=== PATIENT | female | born 1955 ===

== ENCOUNTER → 2016-12-19 | Outpatient (CLI) | payer OTHER ==
[2016-12-19 11:50] LABS: Vitamin B12 >1000 pg/mL (239-931)
== END | disposition home or self-care (01) ==
LOC: LABWHC1 09:44
PROVIDERS: ATTEND Internal Medicine Endocrinology, Diabetes & Metabolism
DX: E04.2 Nontoxic multinodular goiter (principal); E03.8 Other specified hypothyroidism; E53.8 Deficiency of other specified B group vitamins
CPT/HCPCS: 36415; 82607; 84443

== ENCOUNTER 2021-11-09 12:41 | Emergency (ER) | payer BC, OTHER ==
[2021-11-09 13:33] VITALS: TEMP 98.2
[2021-11-09] MEDS ORDERED: SODIUM CHLORIDE 0.9% 1,000 ML IV STA (13:49)
[2021-11-09 14:17] LABS: Basophils # (A) 0.1 k/uL (0-0.2); Basophils % (A) 1 %; Eosinophils # (A) 0.1 k/uL (0-0.7); Eosinophils % (A) 2 %; HCT 39.6 % (34.0-46.0); HGB 13.5 gm/dL (11.4-16.0); Lymphocytes # (A) 2.3 k/uL (1.0-4.8); Lymphocytes % (A) 32 %; MCH 29.5 pg (25.0-35.0); MCHC 34.2 g/dL (31.0-37.0); MCV 86.4 fL (80.0-100.0); Mean Platelet Volume 7.1; Monocytes # (A) 0.3 k/uL (0-1.0); Monocytes % (A) 5 %; Neutrophils # (A) 4.1 k/uL (1.3-7.7); Neutrophils % (A) 59 %; Platelet Count 357 k/uL (150-450); RBC 4.58 m/uL (3.80-5.40); RDW 12.1 % (11.5-15.5)
[2021-11-09] MEDS ORDERED: ACETAMINOPHEN TAB 500 MG TAB PO STA (14:22)
--- NOTE | 2021-11-09 14:25 | ED ---
General Adult HPI - General Source: patient, RN notes reviewed, old records reviewed Mode of arrival: ambulatory Limitations: no limitations <Richar Alcocer - Last Filed: 11/09/21 14:41> <Ronald Pope - Last Filed: 11/09/21 16:17> - General Chief complaint: Dizziness Stated complaint: covid+, High BP Time Seen by Provider: 11/09/21 13:38 - History of Present Illness Initial comments: 65-year-old female presenting for evaluation of coronavirus and elevated blood pressure. Patient is accompanied by her daughter who is able to give a detailed history. The patient himself does not speak much Uz[place]. She had developed symptoms over the past 7 days. Patient had been vaccinated with booster. She had developed headache she has predominately occipital and some dizziness. She denies chest pain or dyspnea. No abdominal pain. No focal weakness or numbness but she has some tingling sensation in her right arm predominantly. She also had an elevated blood pressure which she does not have history of. (Richar Alcocer) - Related Data Home Medications Medication Instructions Recorded Confirmed Aspirin EC [Ecotrin Low Dose] 81 mg PO DAILY 11/09/21 11/09/21 Calcium Carbonate [Calcium] 600 mg PO DAILY 11/09/21 11/09/21 Cholecalciferol [Vitamin D3 (25 25 mcg PO DAILY 11/09/21 11/09/21 Mcg = 1000 Iu)] Thyroid, Pork [[place] Thyroid] 30 mg PO DAILY 11/09/21 11/09/21 Thyroid,Pork [[place] Thyroid] 15 mg PO DAILY 11/09/21 11/09/21 Zinc 50 mg PO DAILY 11/09/21 11/09/21 Allergies Allergy/AdvReac Type Severity Reaction Status Date / Time No Known Allergies Allergy Verified 11/09/21 15:51 Review of Systems ROS Other: All systems not noted in ROS Statement are negative. <Richar Alcocer - Last Filed: 11/09/21 14:41> ROS Other: All systems not noted in ROS Statement are negative. <Ronald Pope - Last Filed: 11/09/21 16:17> ROS Statement: Those systems with pertinent positive or pertinent negative responses have been documented in the HPI. Past Medical History Past Medical History: Hypertension, Thyroid Disorder History of Any Multi-Drug Resistant Organisms: None Reported Past Surgical History: No Surgical Hx Reported Past Psychological History: No Psychological Hx Reported Smoking Status: Never smoker Past Alcohol Use History: None Reported Past Drug Use History: None Reported <Richar Alcocer - Last Filed: 11/09/21 14:41> General Exam Limitations: no limitations General appearance: alert, in no apparent distress Head exam: Present: atraumatic, normocephalic Eye exam: Present: normal appearance, PERRL ENT exam: Present: normal exam Neck exam: Present: normal inspection. Absent: tenderness, meningismus Respiratory exam: Present: normal lung sounds bilaterally. Absent: respiratory distress, wheezes Cardiovascular Exam: Present: regular rate, normal rhythm GI/Abdominal exam: Present: soft. Absent: distended, tenderness Extremities exam: Present: normal inspection, normal capillary refill Neurological exam: Present: alert, oriented X3, CN II-XII intact, other (NIH is 0, normal teacher hearing impaired strength, no ataxia, 5 out of 5 strength in all extremities.). Absent: motor sensory deficit Psychiatric exam: Present: normal affect, normal mood Skin exam: Present: warm, dry, intact. Absent: cyanosis, diaphoretic <Richar Alcocer - Last Filed: 11/09/21 14:41> Course Vital Signs 11/09/21 11/09/21 13:22 14:55 Temperature 98.2 F Pulse Rate 67 72 Respiratory 18 16 Rate Blood Pressure 154/82 158/62 O2 Sat by Pulse 98 97 Oximetry EKG Findings - EKG Comments: EKG Findings:: EKG: Normal sinus rhythm, rate of 76, LA interval 172, QRS duration 82, QTC [address] segment elevation. <Richar Alcocer - Last Filed: 11/09/21 14:41> Medical Decision Making - Lab Data Result diagrams: 11/09/21 14:06 11/09/21 14:06 <Richar Alcocer - Last Filed: 11/09/21 14:41> - Lab Data Result diagrams: 11/09/21 14:06 11/09/21 14:06 <Ronald Pope - Last Filed: 11/09/21 16:17> - Medical Decision Making 65-year-old female presenting with coronavirus. Patient does have a headache. She is otherwise well-appearing. Blood pressure is mildly elevated 150 systolic. She has a nonfocal neurologic exam. She had some paresthesias in the right arm but has no weakness, no ataxia NIH of 0. She had a heart sounds acute occipital and generalized headache. This began several hours prior to arrival. Head CT is negative for intracranial hemorrhage or mass effect she has normal CBC, normal CMP. I did have a lengthy discussion regarding monoclonal antibodies with the patient's daughter, she does meet based on age. These will be transfused in the emergency department. She will continue to monitor blood pressure at home and follow with the primary care. (Richar Alcocer) Patient was reevaluated at the bedside at 3:35 PM. Patient presents with family member, Mary who serves as the reconstructive surgeon. Patient's primary language is [place]. Patient allegedly had several hours of paresthesias to the proximal right arm overlying the triceps area. She states that has resolved. She does have persistent what she describes as pins and needle sensations to the plantar surface of the right foot. She states that he gets to the distal aspect to the plantar surface of the right foot, she has great dorsalis pedis and posterior tibialis pulses to that area, toes are warm. She has sensation to touch to the specified area. Patient ambulatory with no issues. Patient's presentation does not localize to a [employer] area making CVA unlikely. She does not have any deficits. She denies any gross numbness. No signs of extremity ischemia. Patient's symptoms likely secondary to neuropathy. She denies any headache at the bedside. Patient's clinical presentation has no high-risk features for acute [employer] or limb threatening process. Patient sure with monoclonal antibodies. Patient was observed in emergency Department 1 hour after infusion with no complications. Patient stable for discharge. (Ronald Pope) - Lab Data Lab Results 11/09/21 11/09/21 11/09/21 Range/Units 14:06 14:06 14:06 WBC 7.0 (3.8-10.6) k/uL RBC 4.58 (3.80-5.40) m/uL Hgb 13.5 (11.4-16.0) gm/dL Hct 39.6 (34.0-46.0) % MCV 86.4 (80.0-100.0) fL MCH 29.5 (25.0-35.0) pg MCHC 34.2 (31.0-37.0) g/dL RDW 12.1 (11.5-15.5) % Plt Count 357 (150-450) k/uL MPV 7.1 Neutrophils % 59 % Lymphocytes % 32 % Monocytes % 5 % Eosinophils % 2 % Basophils % 1 % Neutrophils # 4.1 (1.3-7.7) k/uL Lymphocytes # 2.3 (1.0-4.8) k/uL Monocytes # 0.3 (0-1.0) k/uL Eosinophils # 0.1 (0-0.7) k/uL Basophils # 0.1 (0-0.2) k/uL PT 10.1 (9.0-12.0) sec INR 0.9 (<1.2) Sodium 133 L (137-145) mmol/L Potassium 4.4 (3.5-5.1) mmol/L Chloride 102 (98-107) mmol/L Carbon Dioxide 23 (22-30) mmol/L Anion Gap 8 mmol/L BUN 16 (7-17) mg/dL Creatinine 0.65 (0.52-1.04) mg/dL Est GFR (CKD-EPI)AfAm >90 (>60 ml/min/1.73 sqM) Est GFR (CKD-EPI)NonAf >90 (>60 ml/min/1.73 sqM) Glucose 107 H (74-99) mg/dL Calcium 9.5 (8.4-10.2) mg/dL Magnesium 2.1 (1.6-2.3) mg/dL Total Bilirubin 0.5 (0.2-1.3) mg/dL AST 22 (14-36) U/L ALT 16 (4-34) U/L Alkaline Phosphatase 71 (38-126) U/L Total Protein 7.6 (6.3-8.2) g/dL Albumin 4.3 (3.5-5.0) g/dL Urine Color Urine Appearance (Clear) Urine pH (5.0-8.0) Ur Specific [place] (1.001-1.035) Urine Protein (Negative) Urine Glucose (UA) (Negative) Urine Ketones (Negative) Urine Blood (Negative) Urine Nitrite (Negative) Urine Bilirubin (Negative) Urine Urobilinogen (<2.0) mg/dL Ur Leukocyte Esterase (Negative) Urine RBC (0-5) /hpf Urine WBC (0-5) /hpf Urine Bacteria (None) /hpf 11/09/21 Range/Units 14:30 WBC (3.8-10.6) k/uL RBC (3.80-5.40) m/uL Hgb (11.4-16.0) gm/dL Hct (34.0-46.0) % MCV (80.0-100.0) fL MCH (25.0-35.0) pg MCHC (31.0-37.0) g/dL RDW (11.5-15.5) % Plt Count (150-450) k/uL MPV Neutrophils % % Lymphocytes % % Monocytes % % Eosinophils % % Basophils % % Neutrophils # (1.3-7.7) k/uL Lymphocytes # (1.0-4.8) k/uL Monocytes # (0-1.0) k/uL Eosinophils # (0-0.7) k/uL Basophils # (0-0.2) k/uL PT (9.0-12.0) sec INR (<1.2) Sodium (137-145) mmol/L Potassium (3.5-5.1) mmol/L Chloride (98-107) mmol/L Carbon Dioxide (22-30) mmol/L Anion Gap mmol/L BUN (7-17) mg/dL Creatinine (0.52-1.04) mg/dL Est GFR (CKD-EPI)AfAm (>60 ml/min/1.73 sqM) Est GFR (CKD-EPI)NonAf (>60 ml/min/1.73 sqM) Glucose (74-99) mg/dL Calcium (8.4-10.2) mg/dL Magnesium (1.6-2.3) mg/dL Total Bilirubin (0.2-1.3) mg/dL AST (14-36) U/L ALT (4-34) U/L Alkaline Phosphatase (38-126) U/L Total Protein (6.3-8.2) g/dL Albumin (3.5-5.0) g/dL Urine Color Colorless Urine Appearance Clear (Clear) Urine pH 5.0 (5.0-8.0) Ur Specific [place] 1.004 (1.001-1.035) Urine Protein Negative (Negative) Urine Glucose (UA) Negative (Negative) Urine Ketones Negative (Negative) Urine Blood Negative (Negative) Urine Nitrite Negative (Negative) Urine Bilirubin Negative (Negative) Urine Urobilinogen <2.0 (<2.0) mg/dL Ur Leukocyte Esterase Large H (Negative) Urine RBC 1 (0-5) /hpf Urine WBC 11 H (0-5) /hpf Urine Bacteria Rare H (None) /hpf Disposition Is patient prescribed a controlled substance at d/c from ED?: No Time of Disposition: 14:43 <CindaRichar dela cruz N - Last Filed: 11/09/21 14:41> Is patient prescribed a controlled substance at d/c from ED?: No <Ronald Pope - Last Filed: 11/09/21 16:17> Clinical Impression: COVID-19, Head ache, Neuropathy Disposition: HOME SELF-CARE Condition: Fair Instructions (If sedation given, give patient instructions): Coronavirus Disease 2019 (COVID-19), Hypertension (ED) Additional Instructions: Please monitor blood pressure at home. Please follow up with primary care physician. Please return with any worsening or changing symptoms. Please take vitamin C, zinc, and vitamin D at home. Please seek immediate medical attention if you start to develop worsening neurologic symptoms especially associated with other focal neurologic symptoms including numbness, confusion or difficulty with speech. Otherwise, follow up with your primary care doctor for pins and needle sensation to the bottom of your foot. Referrals: Ochoa Steiner MD [Primary Care Provider] - 1-2 days
--- NOTE | 2021-11-09 14:30 | CT ---
EXAMINATION TYPE: CT brain wo con DATE OF EXAM: 11/09/2021 HISTORY: HTN, Numbness in Right hand, Right foot tingling and positive COVID CT DLP: 1129.4 mGycm. Automated Exposure Control for Dose Reduction was Utilized. TECHNIQUE: CT scan of the head is performed without contrast. COMPARISON: None. FINDINGS: There is no acute intracranial hemorrhage or midline shift identified. There is mild to m oderate diffuse ventricular and sulcal prominence. Scattered nonspecific areas of low signal through out the superficial deep and periventricular white matter are present . . Some dependent fluid in the right sphenoid sinus with mild mucosal thickening. Moderate patchy fluid and mucosal thickening bila teral ethmoid sinuses greatest anteriorly. The globes are intact bilaterally. IMPRESSION: No acute intracranial hemorrhage or midline shift. There is mild to moderate diffuse ag e-related cerebral atrophy and moderate nonspecific white matter changes favoring product of chronic small vessel ischemic change in patient of this age. Correlation with old outside CT or MRI would be beneficial.
[2021-11-09 14:33] LABS: ALT 16 U/L (4-34); AST 22 U/L (14-36); African American GFR (CKD) >90 (>60 ml/min/1.73 sqM); Albumin 4.3 g/dL (3.5-5.0); Alkaline Phosphatase 71 U/L (38-126); Anion Gap 8 mmol/L; Blood Urea Nitrogen 16 mg/dL (7-17); Calcium 9.5 mg/dL (8.4-10.2); Carbon Dioxide 23 mmol/L (22-30); Chloride 102 mmol/L (98-107); Glucose 107 mg/dL (74-99); Magnesium 2.1 mg/dL (1.6-2.3); Non-African American GFR(CKD) >90 (>60 ml/min/1.73 sqM); Potassium 4.4 mmol/L (3.5-5.1); Sodium 133 mmol/L (137-145); Total Bilirubin 0.5 mg/dL (0.2-1.3); Total Protein 7.6 g/dL (6.3-8.2)
[2021-11-09 14:40] LABS: INR 0.9 (<1.2); Prothrombin Time 10.1 sec (9.0-12.0)
[2021-11-09 14:57] VITALS: BP 158/62; PULSE 72; RESP 16
[2021-11-09 14:58] LABS: Appearance,Urine Clear (Clear); Bacteria,Urine Rare /hpf; Bilirubin,Urine Negative (Negative); Blood,Urine Negative (Negative); Color,Urine Colorless; Glucose,Urine (UA) Negative (Negative); Ketones,Urine Negative (Negative); Leukocyte Esterase,Urine Large (Negative); Nitrite,Urine Negative (Negative); Protein,Urine Negative (Negative); RBC,Urine 1 /hpf (0-5); Specific Gravity,Urine 1.004 (1.001-1.035); Urobilinogen,Urine <2.0 mg/dL (<2.0); WBC,Urine 11 /hpf (0-5)
[2021-11-09] MEDS ORDERED: SODIUM CHLORIDE 0.9% 50 ML IVPB ONE (15:00)
[2021-11-09] MEDS ORDERED: CASIRIVIMAB (REGN10933) (EUA) 600 MG, IMDEVIMAB (REGN10987) (EUA) 600 MG in SODIUM CHLO... IVPB ONE (15:00)
== END 2021-11-09 16:15 | disposition home or self-care (01) ==
LOC: SUPCPDRO 12:41 → EC 12:41
DX: U07.1 COVID-19 (principal); R51.9 Headache, unspecified; G62.9 Polyneuropathy, unspecified; I10 Essential (primary) hypertension; E07.9 Disorder of thyroid, unspecified; Z79.82 Long term (current) use of aspirin
CPT/HCPCS: 99284; 96360; 36415; 93005; 80053; 83735; 85025; 85610; 81001; 87086; 70450; Q0244

== ENCOUNTER → 2024-02-08 | Outpatient (CLI) | payer BC ==
[2024-02-08] MEDS: SODIUM CHLORIDE 0.9% 500 ML 500 ML in EMPTY BAG 1 BAG IV PRN (14:43)
[2024-02-08] MEDS: ZOLEDRONIC ACID 5 MG in SODIUM CHLORIDE 0.9% 100 ML IV NR (14:52)
[2024-02-08 15:03] VITALS: BP 133/68; PULSE 67; RESP 14; TEMP 97.7
== END ==
LOC: PROCWHC3 14:24
PROVIDERS: ATTEND Internal Medicine
DX: M81.0 Age-related osteoporosis without current pathological fracture (principal)
CPT/HCPCS: 96365; J3489

== ENCOUNTER → 2025-04-02 | Outpatient (CLI) | payer BC ==
[~2025-04-02] MED LIST: SODIUM CHLORIDE 0.9% 250 ML in EMPTY BAG 1 BAG IV PRN
[2025-04-02 14:37] VITALS: BP 131/75; PULSE 56; RESP 16; TEMP 98.8
[2025-04-02] MEDS: SODIUM CHLORIDE 0.9% 500 ML 500 ML in EMPTY BAG 1 BAG IV PRN (14:38)
[2025-04-02] MEDS: ZOLEDRONIC ACID 5 MG in SODIUM CHLORIDE 0.9% 100 ML IV NR (14:42)
== END ==
LOC: PROCWHC3 14:17
PROVIDERS: ATTEND Internal Medicine
DX: M81.0 Age-related osteoporosis without current pathological fracture (principal)
CPT/HCPCS: 96365; J3489